=== PATIENT | female | born 1960 | race Caucasian/White ===

== ENCOUNTER 2016-08-05 12:47 | Emergency (ER) | payer OTHER ==
[~2016-08-05] VITALS: Ht 154.9 cm; Wt 60.2 kg
[~2016-08-05 12:47] MED LIST: IBUP-1542 PO; PRED20TA PO
[2016-08-05 12:48] VITALS: Ht 154.9 cm; Wt 60.2 kg
[2016-08-05] MEDS ORDERED: FLUT9.9S NASAL (14:18)
[2016-08-05] MEDS ORDERED: BENZ100C70 PO (14:18)
[2016-08-05] MEDS ORDERED: OSLT75C PO (14:18)
[2016-08-05] MEDS ORDERED: PSEU30TA38 PO (14:18)
[2016-08-05] MEDS ORDERED: D-ME473S18 PO (14:18)
[2016-08-05 14:49] VITALS: BP 128/78; PULSE 72; RESP 16; TEMP 98.6
--- NOTE | 2016-08-05 16:01 | ERD ---
DATE OF SERVICE: 08/05/2016 HISTORY OF PRESENT ILLNESS: The patient is a 55-year-old female complaining of flu-like symptoms. She states that she has had body aches and tactile fevers, sore throat, cough, congestion. She has not taken any medication for her symptoms. She has had these symptoms for the last 2 days. PAST MEDICAL HISTORY: Denies medical problems. ALLERGIES: DENIES MEDICATIONS: Denies. SURGICAL HISTORY: Hysterectomy. SOCIAL HISTORY: Denies. REVIEW OF SYSTEMS: A 12-point review of systems was done. Refer to HPI for positives, all other sy stems negative. PHYSICAL EXAMINATION VITAL SIGNS: Temperature is 99.2, pulse 97, blood pressure is 130/82, respiratory 18, O2 saturation 99% on room air. Pain intensity of 3/10. GENERAL: The patient is well-appearing, well-nourished, no acute distress. HEENT: Atraumatic. Conjunctivae are pink. Pupils equal, round, and reactive to light. There is no s cleral icterus. Tympanic membranes clear bilaterally. Oropharynx clear. No nystagmus or photophobia . CHEST: Clear to auscultation bilaterally. There are no rales, wheezes or rhonchi. HEART: Regular rate and rhythm. No murmurs, clicks, rubs or gallops. No S3 or S4. ABDOMEN: Soft, nontender and nondistended. Good bowel sounds. No rebound or guarding. No gross macarena tonitis. No gross organomegaly or masses. No Johnson sign or McBurney point tenderness. SKIN: There is no apparent rash or petechia. The skin is warm and dry. DIAGNOSIS: Influenza-like symptoms. MEDICAL DECISION MAKING: I have low suspicion for meningitis or sepsis. The patient's symptoms are likely associated with a viral etiology. I did not feel there was indication for further workup at this time. I have low suspicion for pneumonia, low suspicion for bacterial HEENT infection, low gould spicion for acute abdominal etiology. DISCHARGE: The patient is discharged stable. Patient is given a prescription for Tamiflu, prometha zine DM, Tessalon, Sudafed and Flonase and told to follow up with primary care within 1 to 2 days fo r reevaluation. The patient was told if symptoms progress or worsen to return to the ER. All other questions answered at time of discharge. Discharge summary given at the time of departure. Derick del cid understood and complied with plan. Dictated By: ARIANNE BORJA for [facility]RIST[facility] LAMBERT/KALANI Conf#: [id number] DID#: [id number]
== END 2016-08-05 14:50 | disposition home or self-care (01) ==
LOC: FTE 12:47
DX: J02.9 Acute pharyngitis, unspecified (principal); R09.89 Other specified symptoms and signs involving the circulatory and respiratory systems; R52 Pain, unspecified
CPT/HCPCS: 99284

== ENCOUNTER 2017-04-01 13:53 | Emergency (ER) | payer OTHER ==
[~2017-04-01] VITALS: Wt 65.9 kg
[~2017-04-01 13:53] MED LIST changes: +BENZ100C70 PO; +D-ME473S18 PO; +FLUT9.9S NASAL; +OSLT75C PO; +PSEU30TA38 PO
[2017-04-01] MEDS ORDERED: morphine 4 MG/ML VIAL IV STA (18:32)
[2017-04-01] MEDS ORDERED: ONDANSETRON 4 MG INJ IV STA (18:32)
--- NOTE | 2017-04-01 18:38 | ERA ---
ER Documentation Chief Complaint Date/Time DATE: 04/01/17 TIME: 18:34 Chief Complaint n/v, bethea, epigastric pain HPI 56-year-old female presents with a chief complaint of 24 hours of nausea, vomiting 7, upper abdominal pain. Pain gets worse after eating. Vomiting described as nonbilious. No specific foods trigger the pain. No similar symptoms in the past. Took [place] without relief. Denies fever, headache , dizziness, constipation, melena, diarrhea, dysphagia, abdominal aphasia, chest pain, shortness of breath. ROS All systems reviewed and are negative except as per history of present illness. Medications Home Meds Active Scripts Dextromethorphan Hb-Promethazine Hcl (Promethazine DM Syrup) 473 Ml Syrup, 5 ML PO Q6H Y for COUGH, #4 OZ Prov:ASTER JC PA-C 08/05/16 Benzonatate* (Tessalon Perle*) 100 Mg Capsule, 100 MG PO TID, #30 CAP Prov:ASTER JC PA-C 08/05/16 Pseudoephedrine Hcl* (Pseudoephedrine Hcl*) 30 Mg Tablet, 30 MG PO Q6 Y for CONGESTION, #30 TAB Prov:ASTER JC PA-C 08/05/16 Fluticasone Propionate (Flonase Allergy Relief) 9.9 Ml [place].susp, 1 SPRAY NASAL DAILY, #1 BOTTLE TO EACH NOSTRIL Prov:ASTER JC PA-C 08/05/16 Oseltamivir Phosphate* (Tamiflu*) 75 Mg Capsule, 75 MG PO BID for 5 Days, CAP Prov:ASTER JC PA-C 08/05/16 Prednisone* (Prednisone*) 20 Mg Tab, 60 MG PO DAILY for 5 Days, TAB Prov:LUKASZ KAN MD 10/06/15 Ibuprofen* (Motrin*) 600 Mg Tab, 600 MG PO Q6H Y for PAIN AND OR ELEVATED TEMP, #30 TAB Prov:LUKASZ KAN MD 10/06/15 Allergies Allergies: Coded Allergies: shrimp (Verified Allergy, Unknown, 04/01/17) PMhx/Soc Hx Alcohol Use: No Hx Substance Use: No Hx Tobacco Use: No Physical Exam Vitals Vital Signs Date Time Temp Pulse Resp B/P Pulse Ox O2 Delivery O2 Flow Rate FiO2 04/01/17 13:55 98.2 93 20 117/63 99 Physical Exam Const: Overweight 56-year-old female. No acute distress. Head: Atraumatic Eyes: Normal Conjunctiva - no jaundice. PERRLA, EOMI bilaterally. No nystagmus. ENT: Normal External Ears, Nose and Mouth. Neck: Full range of motion..~ No meningismus. Resp: Clear to auscultation bilaterally Cardio: Regular rate and rhythm, no murmurs. Cap refill WNL. Radial pulses 2+ bilaterally. Abd: Mild right upper quadrant tenderness. Nontender in all other areas. Soft, nondistended, normal bowel sounds. No masses palpated. Negative Johnson sign. Skin: No petechiae or rashes Back: No midline or flank tenderness. No CVA tenderness. Ext: No cyanosis, or edema Neur: Awake and alert Psych: Normal Mood and Affect Result Diagram: 04/01/17185204/01/171852 Results 24 hrs Laboratory Tests Test 04/01/17 18:53 White Blood Count 7.810^3/ul Red Blood Count 4.8310^6/ul Hemoglobin 13.4g/dl Hematocrit 40.0% Mean Corpuscular Volume 82.8fl Mean Corpuscular Hemoglobin 27.7pg Mean Corpuscular Hemoglobin Concent 33.5g/dl Red Cell Distribution Width 12.0% Platelet Count 71380^3/UL Mean Platelet Volume 9.9fl Neutrophils % 53.2% Lymphocytes % 35.6% Monocytes % 8.1% Eosinophils % 2.4% Basophils % 0.4% Nucleated Red Blood Cells % 0.0/100WBC Neutrophils # 4.110^3/ul Lymphocytes # 2.810^3/ul Monocytes # 0.610^3/ul Eosinophils # 0.210^3/ul Basophils # 0.010^3/ul Nucleated Red Blood Cells # 0.010^3/ul Urine Color YELLOW Urine Clarity CLEAR Urine pH 7.0 Urine Specific Liberal 1.010 Urine Ketones NEGATIVEmg/dL Urine Nitrite NEGATIVEmg/dL Urine Bilirubin NEGATIVEmg/dL Urine Urobilinogen NEGATIVEmg/dL Urine Leukocyte Esterase NEGATIVELeu/ul Urine Hemoglobin NEGATIVEmg/dL Urine Glucose NEGATIVEmg/dL Urine Total Protein NEGATIVEmg/dl Sodium Level 138mmol/L Potassium Level 4.2mmol/L Chloride Level 100mmol/L Carbon Dioxide Level 27mmol/L Anion Gap 15 Blood Urea Nitrogen 15mg/dl Creatinine 0.61mg/dl Glucose Level 110mg/dl Calcium Level 9.5mg/dl Total Bilirubin 0.6mg/dl Direct Bilirubin 0.00mg/dl Indirect Bilirubin 0.6mg/dl Aspartate Amino Transf (AST/SGOT) 36IU/L Alanine Aminotransferase (ALT/SGPT) 39IU/L Alkaline Phosphatase 77IU/L Total Protein 8.6g/dl Albumin 4.6g/dl Globulin 4.00g/dl Albumin/Globulin Ratio 1.15 Lipase 106U/L Current Medications Medications (Trade) Dose Ordered Sig/Renato Route PRN Reason Start Time Stop Time Status Last Admin Dose Admin Ondansetron HCl (Zofran Inj) 4 mg ONCE STAT IV 04/01/17 18:32 04/01/17 18:35 DC 04/01/17 18:48 Morphine Sulfate (morphine) 4 mg ONCE STAT IV 04/01/17 18:32 04/01/17 18:35 DC 04/01/17 18:48 Procedures/MDM 56-year-old female presents with a chief complaint of right upper quadrant abdominal pain and nausea as described in the history and physical examination. as described in history and physical examination. EKG was read by me as: In normal sinus rhythm, no ST wave elevation or depression, no T-wave abnormalities , normal axis, good baseline. Urine negative. CBC, CMP, lipase, urinalysis all within normal limits. Right upper quadrant ultrasound was read by the radiologist given the following impression: Mild fatty liver; otherwise unremarkable. No vomiting occurred in the emergency department. Symptoms relieved with medications given in the ED. At this time I do not suspect cholangitis, cholecystitis, intestinal ischemia, pyelonephritis as well as hepatitis, appendicitis, acute pancreatitis pneumonia, or ACS. Current most likely diagnosis is abdominal pain of unknown etiology. Upon reevaluation the abdomen is unremarkable. The patient is well appearing, and tolerates PO. I have spoke with the patient regarding their condition and future management. They have verbally responded that they understand their status and treatment plan. The patients vitals are stable, and their current condition is appropriate for discharge. The patient will be given discharge instructions with return precautions. Discharge medications: Zofran Departure Diagnosis: Primary Impression: Nausea and vomiting Qualified Code: R11.2 - Non-intractable vomiting with nausea, unspecified vomiting type Condition: Stable Additional Instructions: Follow up with your PCP within the next 1-3 days for a more thorough evaluation and a possible referral to a specialist. Return the the emergency department immediately if symptoms worsen or change. If you have any questions regarding medications, ask your pharmacist or us before you leave. If any adverse reactions occur while taking your medications, discontinue the treatment and return to the emergency department immediately. Take your medications as directed, and complete the entire course of treatment. LUÍS JAIN PA-C Apr 01, 2017 18:38
[2017-04-01 19:18] LABS: BASOPHILS % 0.4 % (0.0-2.0); EOSINOPHILS # 0.2 10^3/ul (0.0-0.5); EOSINOPHILS % 2.4 % (0.0-7.0); HEMOGLOBIN 13.4 g/dl (12.0-16.0); LYMPHOCYTES # 2.8 10^3/ul (0.8-2.9); LYMPHOCYTES % 35.6 % (15.0-51.0); MEAN CORPUSCULAR HEMOGLOBIN 27.7 pg (29.0-33.0); MEAN CORPUSCULAR HGB CONC 33.5 g/dl (32.0-37.0); MEAN CORPUSCULAR VOLUME 82.8 fl (82.0-101.0); MEAN PLATELET VOLUME 9.9 fl (7.4-10.4); MONOCYTE # 0.6 10^3/ul (0.3-0.9); MONOCYTES % 8.1 % (0.0-11.0); NEUTROPHIL # 4.1 10^3/ul (1.6-7.5); NEUTROPHILS % 53.2 % (39.0-77.0); PLATELET COUNT 245 10^3/UL (140-415); RED BLOOD COUNT 4.83 10^6/ul (4.20-5.40); WHITE BLOOD COUNT 7.8 10^3/ul (4.8-10.8)
[2017-04-01 19:20] LABS: ADD UMIC NO; UR ASCORBIC ACID NEGATIVE (NEGATIVE); UR BILIRUBIN (Dip) NEGATIVE (NEGATIVE); UR BLOOD (Dip) NEGATIVE (NEGATIVE); UR CLARITY CLEAR (CLEAR); UR COLOR YELLOW (YELLOW); UR GLUCOSE (Dip) NEGATIVE (NEGATIVE); UR KETONES (Dip) NEGATIVE (NEGATIVE); UR LEUKOCYTE ESTERASE (Dip) NEGATIVE Leu/ul (NEGATIVE); UR NITRITE (Dip) NEGATIVE (NEGATIVE); UR TOTAL PROTEIN (Dip) NEGATIVE (NEGATIVE); UR UROBILINOGEN (Dip) NEGATIVE (NEGATIVE)
[2017-04-01 19:38] LABS: ALBUMIN 4.6 g/dl (3.3-4.9); ALBUMIN/GLOBULIN RATIO 1.15; BILIRUBIN,INDIRECT 0.6 mg/dl (0-1.1); BILIRUBIN,TOTAL 0.6 mg/dl (0.2-1.3); CALCIUM 9.5 mg/dl (8.4-10.2); CREATININE 0.61 mg/dl (0.44-1.00); POTASSIUM 4.2 mmol/L (3.5-5.1); TOTAL PROTEIN 8.6 g/dl (6.1-8.1)
--- NOTE | 2017-04-01 19:59 | RADRPT ---
PROCEDURE: Right Upper Quadrant Ultrasound. CLINICAL INDICATION: Abdominal Pain TECHNIQUE: Multiple real-time images were acquired of the patient's right upper quadrant abdomen a nd retroperitoneum utilizing a high resolution transducer. COMPARISON: None FINDINGS: The liver measures 14.1 cm, and demonstrates moderately increased echogenicity. The main portal vein is patent with proper directional flow. There is no intrahepatic biliary ductal dilatation. The ext rahepatic common bile duct measures 4 mm. The gallbladder is without stones, wall thickening, or pericholecystic fluid. The visualized pancreas is unremarkable. The right kidney measures 10.3 cm and demonstrates normal echotexture. There is no right renal calcu [place] or hydronephrosis. The visualized abdominal aorta and IVC are grossly unremarkable. IMPRESSION: Moderate fatty infiltration of the liver. No cholelithiasis or acute cholecystitis. Normal CBD. RPTAT: EE Physician Raji Date Time Electronically viewed and signed by Physician Raji on 04/01/2017 19:58 /
[2017-04-01] MEDS ORDERED: ONDA4TAB14 PO (20:07)
== END 2017-04-01 20:17 | disposition home or self-care (01) ==
LOC: FTE 13:53
DX: R11.2 Nausea with vomiting, unspecified (principal); R10.13 Epigastric pain
CPT/HCPCS: 36415; 76705; 80053; 81003; 83690; 85025; 93005; 96374; 96375; J2270; J2405; Z7502

== ENCOUNTER 2017-10-06 14:04 | Emergency (ER) | END 2017-10-06 20:54 | disposition home or self-care (01) ==